=== PATIENT | female | born 1990 | race Caucasian/White ===

== ENCOUNTER 2016-07-01 11:22 | Emergency (ER) | payer OTHER ==
--- NOTE | 2016-07-01 13:43 | ED ---
GI/ HPI - HPI Summary HPI Summary: Patient with 1 month history of foul smelling urine and intermittent left sided back pain, but none currently. She denies history of UTI, kidney stones, kidney infection or abdominal surgeries. She denies previous back pain. Urine smells of "asparagus" and states it is constant. Sexual history includes one partner - each were tested prior to entering relationship. Denies N/V/D/C. Denies trauma to the back. Denies medications. Patient otherwise healthy. Patient is on oral contraceptives, denies possibility of and LMP 6 months ago. Denies vaginal discharge or foul smelling odor from vaginal area. - History of Current Complaint Chief Complaint: EDGeneral Time Seen by Provider: 07/01/16 12:48 Stated Complaint: BOTH SIDE FLANK PAIN Hx Obtained From: Patient Onset/Duration: Started Weeks Ago - 1 month, Atraumatic, Still Present Timing: Intermittent Severity: Mild Current Severity: Mild Pain Intensity: 0 Location of Pain: Flank Pain Characteristics: Dull, Cramping Associated Signs and Symptoms: Positive: Other: - foul smelling urine Additional Signs & Symptoms: Positive: Menses Regular Aggravating Factor(s): Nothing Alleviating Factor(s): Nothing - Risk Factors GI Bleed Risk Factor(s): Negative Spontaneous AB Risk Factor(s): Negative Placental Abruption Risk Factor(s): Negative Ectopic Risk Factor(s): Negative Ovarian Torsion Risk Factor(s): Negative - Additional Pertinent History Primary Care Physician: [id number] - Allergy/Home Medications Allergies/Adverse Reactions: Allergies Allergy/AdvReac Type Severity Reaction Status Date / Time Fluoxetine [From Prozac] Allergy Intermediate Anger Verified 07/01/16 13:00 Sertraline [From Zoloft] Allergy Intermediate Hives Verified 07/01/16 13:00 Bee Venom Allergy Mild Swelling Verified 07/01/16 13:00 Area Gabapentin Allergy Unknown Verified 07/01/16 13:00 Reaction Details Penicillins [PCN] Allergy GI Upset Verified 07/01/16 13:00 Ziprasidone [From Geodon] AdvReac Mild Facial Verified 07/01/16 13:00 Spasms PMH/Surg Hx/FS Hx/Imm Hx Previously Healthy: Yes Endocrine/Hematology History: Denies: Hx Anticoagulant Therapy Respiratory History: Reports: Hx Asthma - Smoking induced asthma, Hx Seasonal Allergies Denies: Hx Chronic Bronchitis, Hx Chronic Obstructive Pulmonary Disease (COPD ), Hx Cystic Fibrosis, Hx Lung Cancer, Hx Pleural Effusion, Hx Pneumonia, Hx Pulmonary Edema, Hx Pulmonary Embolism, Hx Sleep Apnea, Other Respiratory Problems/Disorders Sensory History: Reports: Hx Hearing Problem Denies: Hx Cataracts, Hx Contacts or Glasses, Hx Eye Injury, Hx Eye Prosthesis, Hx Glaucoma, Hx Legally Blind, Hx Macular Degeneration, Hx Vision Problem, Hx Deafness, Hx Hearing Aid, Other Sensory Impairments Opthamlomology History: Denies: Hx Cataracts, Hx Contacts or Glasses, Hx Eye Injury, Hx Eye Prosthesis, Hx Glaucoma, Hx Legally Blind, Hx Macular Degeneration, Hx Vision Problem, Other Sensory Impairments Neurological History: Reports: Hx Headaches - MIGRAINES Denies: Hx Dementia, Hx Developmental Delay, Hx Migraine, Hx Nerve Disease, Hx Seizures, Hx Spinal Cord Injury, Hx Transient Ischemic Attacks (TIA), Other Neuro Impairments/Disorders Psychiatric History: Reports: Hx Anxiety, Hx Eating Disorder - Bulemia, Hx Depression, Hx Post Traumatic Stress Disorder, Hx Inpatient Treatment, Hx Community Mental Health Tx, Hx Bipolar Disorder, Hx Suicide Attempt, Hx of Violent Episodes Against Others Denies: Hx Attention Deficit Hyperactivity Disorder, Hx Panic Disorder, Hx Schizophrenia, Hx Substance Abuse, Other Psychiatric Issues/Disorders - Surgical History Surgery Procedure, Year, and Place: Cleft Palate repair as infant - Immunization History Date of Tetanus Vaccine: unknown Infectious Disease History: No Infectious Disease History: Denies: Hx Clostridium Difficile, Hx Hepatitis, Hx Human Immunodeficiency Virus (HIV), Hx of Known/Suspected MRSA, Hx Shingles, Hx Tuberculosis, Hx Known/ Suspected VRE, Hx Known/Suspected VRSA, History Other Infectious Disease, Traveled Outside the [place] in Last 30 Days - Family History Known Family History: Positive: None - reviewed & noncontributory, Diabetes Family History: R & n/C - Social History Occupation: Employed Full-time Lives: With Family Alcohol Use: Rare Hx Substance Use: Yes Substance Use Type: Reports: Marijuana, Tranquilizers, Other Substance Use Comment - Amount & Last Used: Hx of klonopin OD Hx Tobacco Use: Yes Smoking Status (MU): Heavy Every Day Tobacco Smoker Type: Cigarettes Have You Smoked in the Last Year: No Review of Systems Constitutional: Negative Eyes: Negative Cardiovascular: Negative Respiratory: Negative Gastrointestinal: Negative Positive: see HPI - foul smelling urine. denies other urinary symptoms, other Positive: Myalgia - bilateral flank/back pain intermittent x1 month Neurological: Negative Psychological: Normal All Other Systems Reviewed And Are Negative: Yes Physical Exam Triage Information Reviewed: Yes Vital Signs On Initial Exam: Initial Vitals Temp Pulse Resp BP Pulse Ox 97.4 F 93 15 149/77 99 07/01/16 11:25 07/01/16 11:25 07/01/16 11:25 07/01/16 11:25 07/01/16 11:25 Vital Signs Reviewed: Yes Appearance: Positive: Well-Appearing, No Pain Distress, Well-Nourished Skin: Positive: Warm, Skin Color Reflects Adequate Perfusion Head/Face: Positive: Normal Head/Face Inspection Eyes: Positive: EOMI, KAUSHIK, Conjunctiva Clear Neck: Positive: Nontender Respiratory/Lung Sounds: Positive: Breath Sounds Present Cardiovascular: Positive: Normal Abdomen Description: Positive: Nontender, No Organomegaly, Soft, Other: - no CVA tenderness Bowel Sounds: Positive: Present Musculoskeletal: Positive: Normal, Strength/ROM Intact Neurological: Positive: Normal, Sensory/Motor Intact, Alert, Oriented to Person Place, Time Psychiatric: Positive: Normal AVPU Assessment: Alert Diagnostics - Vital Signs Vital Signs Temp Pulse Resp BP Pulse Ox 07/01/16 12:25 97.6 F 80 16 154/74 98 07/01/16 11:25 97.4 F 93 15 149/77 99 - Laboratory Lab Statement: Any lab studies that have been ordered have been reviewed, and results considered in the medical decision making process. GIGU Course/Dx - Course Course Of Treatment: UA normal. Provider discussed possibilities for foul smelling urine. Patient states no possibility of STD's and feels does not need a pelvic because of this. Also, back pain is not currently present. D/t clean urine and intermittent back pain will defer at this time for a CT. Patient educated to return to ED if symptoms return or worsen and will reevaluate at that time. Patient agrees with plan and [facility] - Diagnoses Differential Diagnoses - Female: Pelvic Inflammatory Disease, Pyelonephritis, Renal Calculi, Renal Colic Provider Diagnoses: Foul smelling urine Discharge - Discharge Plan Condition: Stable Disposition: HOME Patient Education Materials: Kidney Stones (ED) Referrals: Migel Suarez MD [Primary Care Provider] - Additional Instructions: If you develop a fever, worsening back pain, urinary symptoms or generalized weakness, come back to ED. You may take ibuprofen 600mg three times daily with meals for any discomfort you are having. [facility].
[2016-07-01 13:48] LABS: Urine Bilirubin Negative (Negative); Urine Glucose Negative (Negative); Urine Nitrite Negative (Negative)
[2016-07-01 14:36] VITALS: BP 118/84
== END 2016-07-01 14:35 | disposition home or self-care (01) ==
LOC: ED 11:22
DX: M54.9 Dorsalgia, unspecified (principal); R82.99 Other abnormal findings in urine; R10.84 Generalized abdominal pain; F17.210 Nicotine dependence, cigarettes, uncomplicated
CPT/HCPCS: 81003; 99282

== ENCOUNTER 2016-08-24 10:49 | Emergency (ER) | payer OTHER ==
[2016-08-24 10:57] VITALS: BP 155/76
[2016-08-24 11:31] LABS: Hematocrit 43 % (35-47); Hemoglobin 14.6 g/dl (12.0-16.0); Mean Corpuscular HGB Conc 34 g/dl (31-36); Mean Corpuscular Hemoglobin 29 pg (27-31); Mean Corpuscular Volume 87 fL (80-97); Mean Platelet Volume 9 um3 (7.4-10.4); Red Blood Count 4.97 10^6/ul (4.0-5.4); Red Cell Distribution Width 13 % (10.5-15); White Blood Count 10.3 10^3/ul (3.5-10.8)
[2016-08-24 11:57] LABS: Urine Bilirubin Negative (Negative); Urine Glucose Negative (Negative); Urine Nitrite Negative (Negative)
[2016-08-24 11:57] LABS: ALT 30 U/L (7-52); AST 24 U/L (13-39); Albumin 4.1 g/dL (3.2-5.2); Alkaline Phosphatase 94 U/L (34-104); Anion Gap 8 mmol/L (2-11); BUN/Creatinine Ratio 20.6 (8-20); Blood Urea Nitrogen 14 mg/dL (6-24); CO2 Carbon Dioxide 23 mmol/L (22-32); Calcium 9.1 mg/dL (8.6-10.3); Chloride 105 mmol/L (101-111); EGFR African American 134.5 (>60); EGFR Non-African American 104.6 (>60); Globulin 3.5 g/dL (2-4); Glucose 95 mg/dL (70-100); Potassium 4.1 mmol/L (3.5-5.0); Sodium 136 mmol/L (133-145); Total Protein 7.6 g/dL (6.4-8.9)
[2016-08-24 12:02] LABS: Acetaminophen < 15 mcg/mL; Alcohol < 10 mg/dL (<10); Salicylate < 2.50 mg/dL (<30)
[2016-08-24 12:10] LABS: TSH (Thyroid Stimulating Horm) 2.53 mcIU/mL (0.34-5.60)
[2016-08-24 12:11] LABS: Benzodiazepine Urine Screen None Detected (None Detect)
--- NOTE | 2016-09-18 13:47 | ED ---
Psychiatric Complaint - HPI Summary HPI Summary: Patient presents with depression and uncontrolled crying. She stopped her psyche /depression medicaitons 2 weeks ago under advisement of her physician and has been struggling with depression/anxiety ever since. She denies HI or SI with a plan. - History Of Current Complaint Chief Complaint: EDMentalHealth Time Seen by Provider: 08/24/16 11:04 Hx Obtained From: Patient Hx Last Menstrual Period: 03/31/15 ?: No Onset/Duration: Gradual Onset Timing: Constant Severity Initially: Severe Severity Currently: Severe Character: Depressed Aggravating Factor(s): Nothing Alleviating Factor(s): Medication Associated Signs And Symptoms: Positive: Sleep Disturbance, Appetite Change Related History: Positive For: Prior Psychiatric Issues - Allergies/Home Medications Allergies/Adverse Reactions: Allergies Allergy/AdvReac Type Severity Reaction Status Date / Time Fluoxetine [From Prozac] Allergy Intermediate Anger Verified 07/01/16 13:00 Sertraline [From Zoloft] Allergy Intermediate Hives Verified 07/01/16 13:00 Bee Venom Allergy Mild Swelling Verified 07/01/16 13:00 Area Gabapentin Allergy Unknown Verified 07/01/16 13:00 Reaction Details Penicillins [PCN] Allergy GI Upset Verified 07/01/16 13:00 Ziprasidone [From Geodon] AdvReac Mild Facial Verified 07/01/16 13:00 Spasms Home Medications: Home Medications Ibuprofen TAB* [Motrin TAB* 600 MG] 600 mg PO Q8H PRN 08/24/16 [History Confirmed 08/24/16] PMH/Surg Hx/FS Hx/Imm Hx Endocrine/Hematology History: Denies: Hx Anticoagulant Therapy Respiratory History: Reports: Hx Asthma - Smoking induced asthma, Hx Seasonal Allergies Denies: Hx Chronic Bronchitis, Hx Chronic Obstructive Pulmonary Disease (COPD ), Hx Cystic Fibrosis, Hx Lung Cancer, Hx Pleural Effusion, Hx Pneumonia, Hx Pulmonary Edema, Hx Pulmonary Embolism, Hx Sleep Apnea, Other Respiratory Problems/Disorders Sensory History: Reports: Hx Hearing Problem Denies: Hx Cataracts, Hx Contacts or Glasses, Hx Eye Injury, Hx Eye Prosthesis, Hx Glaucoma, Hx Legally Blind, Hx Macular Degeneration, Hx Vision Problem, Hx Deafness, Hx Hearing Aid, Other Sensory Impairments Opthamlomology History: Denies: Hx Cataracts, Hx Contacts or Glasses, Hx Eye Injury, Hx Eye Prosthesis, Hx Glaucoma, Hx Legally Blind, Hx Macular Degeneration, Hx Vision Problem, Other Sensory Impairments Neurological History: Reports: Hx Headaches - MIGRAINES Denies: Hx Dementia, Hx Developmental Delay, Hx Migraine, Hx Nerve Disease, Hx Seizures, Hx Spinal Cord Injury, Hx Transient Ischemic Attacks (TIA), Other Neuro Impairments/Disorders Psychiatric History: Reports: Hx Anxiety, Hx Eating Disorder - sometimes she binge eats., Hx Depression, Hx Post Traumatic Stress Disorder, Hx Inpatient Treatment, Hx Community Mental Health Tx, Hx Bipolar Disorder, Hx Suicide Attempt, Hx of Violent Episodes Against Others Denies: Hx Attention Deficit Hyperactivity Disorder, Hx Panic Disorder, Hx Schizophrenia, Hx Substance Abuse, Other Psychiatric Issues/Disorders - Surgical History Surgery Procedure, Year, and Place: Cleft Palate repair as - Immunization History Date of Tetanus Vaccine: unknown Infectious Disease History: No Infectious Disease History: Denies: Hx Clostridium Difficile, Hx Hepatitis, Hx Human Immunodeficiency Virus (HIV), Hx of Known/Suspected MRSA, Hx Shingles, Hx Tuberculosis, Hx Known/ Suspected VRE, Hx Known/Suspected VRSA, History Other Infectious Disease, Traveled Outside the [place] in Last 30 Days - Family History Known Family History: Positive: Diabetes Family History: R & n/C - Social History Occupation: Employed Part-time Lives: With Family Alcohol Use: Rare Hx Substance Use: Yes Substance Use Type: Reports: Marijuana, Tranquilizers, Other Substance Use Comment - Amount & Last Used: Hx of klonopin OD Hx Tobacco Use: Yes Smoking Status (MU): Heavy Every Day Tobacco Smoker Type: Cigarettes Have You Smoked in the Last Year: No Cessation Counseling: Patient Advised to Stop Review of Systems Positive: Depressed All Other Systems Reviewed And Are Negative: Yes Physical Exam Triage Information Reviewed: Yes Vital Signs On Initial Exam: Initial Vitals Temp Pulse Resp BP Pulse Ox 97.0 F 86 20 155/76 99 08/24/16 10:55 08/24/16 10:55 08/24/16 10:55 08/24/16 10:55 08/24/16 10:55 Vital Signs Reviewed: Yes Appearance: Positive: Well-Appearing, No Pain Distress, Obese Skin: Positive: Warm, Skin Color Reflects Adequate Perfusion, Dry, Soft Head/Face: Positive: Normal Head/Face Inspection Eyes: Positive: EOMI, KAUSHIK, Conjunctiva Clear ENT: Positive: Hearing grossly normal Neck: Positive: Supple, Nontender, No Lymphadenopathy Respiratory/Lung Sounds: Positive: Clear to Auscultation, Breath Sounds Present Cardiovascular: Positive: RRR Abdomen Description: Positive: Nontender, Soft Bowel Sounds: Positive: Present Musculoskeletal: Negative: Edema Left, Edema Right Neurological: Positive: Sensory/Motor Intact, Alert, Oriented to Person Place, Time, NV Bundle Intact Distally, Normal Gait Psychiatric: Positive: Depressed AVPU Assessment: Alert Diagnostics - Vital Signs Vital Signs Temp Pulse Resp BP Pulse Ox 08/24/16 11:50 97 F 86 20 155/76 100 08/24/16 10:55 97.0 F 86 20 155/76 99 - Laboratory Lab Results: Lab Results 08/24/16 08/24/16 08/24/16 Range/Units 11:14 11:14 11:20 WBC 10.3 (3.5-10.8) 10^3/ul RBC 4.97 (4.0-5.4) 10^6/ul Hgb 14.6 (12.0-16.0) g/dl Hct 43 (35-47) % MCV 87 (80-97) fL MCH 29 (27-31) pg MCHC 34 (31-36) g/dl RDW 13 (10.5-15) % Plt Count 249 (150-450) 10^3/ul MPV 9 (7.4-10.4) um3 Neut % (Auto) 57.7 (38-83) % Lymph % (Auto) 30.8 (25-47) % [place] % (Auto) 6.7 (1-9) % Eos % (Auto) 3.9 (0-6) % Baso % (Auto) 0.9 (0-2) % Absolute Neuts (auto) 5.9 (1.5-7.7) 10^3/ul Absolute Lymphs (auto) 3.2 (1.0-4.8) 10^3/ul Absolute Monos (auto) 0.7 (0-0.8) 10^3/ul Absolute Eos (auto) 0.4 (0-0.6) 10^3/ul Absolute Basos (auto) 0.1 (0-0.2) 10^3/ul Absolute Nucleated RBC 0 10^3/ul Nucleated RBC % 0 Sodium 136 (133-145) mmol/L Potassium 4.1 (3.5-5.0) mmol/L Chloride 105 (101-111) mmol/L Carbon Dioxide 23 (22-32) mmol/L Anion Gap 8 (2-11) mmol/L BUN 14 (6-24) mg/dL Creatinine 0.68 (0.51-0.95) mg/dL Est GFR ( Amer) 134.5 (>60) Est GFR (Non-Af Amer) 104.6 (>60) BUN/Creatinine Ratio 20.6 H (8-20) Glucose 95 (70-100) mg/dL Calcium 9.1 (8.6-10.3) mg/dL Total Bilirubin 0.20 (0.2-1.0) mg/dL AST 24 (13-39) U/L ALT 30 (7-52) U/L Alkaline Phosphatase 94 (34-104) U/L Total Protein 7.6 (6.4-8.9) g/dL Albumin 4.1 (3.2-5.2) g/dL Globulin 3.5 (2-4) g/dL Albumin/Globulin Ratio 1.2 (1-3) TSH 2.53 (0.34-5.60) mcIU/mL Urine Color Straw Urine Appearance Clear Urine pH 6.0 (5-9) Ur Specific [place] 1.008 L (1.010-1.030) Urine Protein Negative (Negative) Urine Ketones Negative (Negative) Urine Blood Negative (Negative) Urine Nitrate Negative (Negative) Urine Bilirubin Negative (Negative) Urine Urobilinogen Negative (Negative) Ur Leukocyte Esterase Negative (Negative) Urine Glucose Negative (Negative) Salicylates < 2.50 (<30) mg/dL Urine Opiates Screen (None Detect) Acetaminophen < 15 mcg/mL Ur Barbiturates Screen (None Detect) Ur Phencyclidine Scrn (None Detect) Ur Amphetamines Screen (None Detect) U Benzodiazepines Scrn (None Detect) Urine Cocaine Screen (None Detect) U Cannabinoids Screen (None Detect) Serum Alcohol < 10 (<10) mg/dL 08/24/16 Range/Units 11:20 WBC (3.5-10.8) 10^3/ul RBC (4.0-5.4) 10^6/ul Hgb (12.0-16.0) g/dl Hct (35-47) % MCV (80-97) fL MCH (27-31) pg MCHC (31-36) g/dl RDW (10.5-15) % Plt Count (150-450) 10^3/ul MPV (7.4-10.4) um3 Neut % (Auto) (38-83) % Lymph % (Auto) (25-47) % [place] % (Auto) (1-9) % Eos % (Auto) (0-6) % Baso % (Auto) (0-2) % Absolute Neuts (auto) (1.5-7.7) 10^3/ul Absolute Lymphs (auto) (1.0-4.8) 10^3/ul Absolute Monos (auto) (0-0.8) 10^3/ul Absolute Eos (auto) (0-0.6) 10^3/ul Absolute Basos (auto) (0-0.2) 10^3/ul Absolute Nucleated RBC 10^3/ul Nucleated RBC % Sodium (133-145) mmol/L Potassium (3.5-5.0) mmol/L Chloride (101-111) mmol/L Carbon Dioxide (22-32) mmol/L Anion Gap (2-11) mmol/L BUN (6-24) mg/dL Creatinine (0.51-0.95) mg/dL Est GFR ( Amer) (>60) Est GFR (Non-Af Amer) (>60) BUN/Creatinine Ratio (8-20) Glucose (70-100) mg/dL Calcium (8.6-10.3) mg/dL Total Bilirubin (0.2-1.0) mg/dL AST (13-39) U/L ALT (7-52) U/L Alkaline Phosphatase (34-104) U/L Total Protein (6.4-8.9) g/dL Albumin (3.2-5.2) g/dL Globulin (2-4) g/dL Albumin/Globulin Ratio (1-3) TSH (0.34-5.60) mcIU/mL Urine Color Urine Appearance Urine pH (5-9) Ur Specific [place] (1.010-1.030) Urine Protein (Negative) Urine Ketones (Negative) Urine Blood (Negative) Urine Nitrate (Negative) Urine Bilirubin (Negative) Urine Urobilinogen (Negative) Ur Leukocyte Esterase (Negative) Urine Glucose (Negative) Salicylates (<30) mg/dL Urine Opiates Screen None detected (None Detect) Acetaminophen mcg/mL Ur Barbiturates Screen None detected (None Detect) Ur Phencyclidine Scrn None detected (None Detect) Ur Amphetamines Screen None detected (None Detect) U Benzodiazepines Scrn None detected (None Detect) Urine Cocaine Screen None detected (None Detect) U Cannabinoids Screen Presumptive positive H (None Detect) Serum Alcohol (<10) mg/dL Result Diagrams: 08/24/16 11:14 08/24/16 11:14 Lab Statement: Any lab studies that have been ordered have been reviewed, and results considered in the medical decision making process. Course/Dx - Differential Dx/Clinical Impression Differential Diagnosis/HQI/PQRI: Positive: Acute Psychosis, Alcohol Intoxication , Anxiety, Bipolar Disorder, Depression, Homicidal Ideation, Suicide Attempt Provider Diagnosis: Persistent mood [affective] disorder, unspecified - Physician Notifications Patient Is Medically Stable For: Psych Evaluation Discharge - Discharge Plan Condition: Guarded Disposition: HOME Referrals: Migel Suarez MD [Primary Care Provider] -
== END 2016-08-24 17:47 | disposition home or self-care (01) ==
LOC: ED 10:49
DX: F39 Unspecified mood [affective] disorder (principal); G47.9 Sleep disorder, unspecified; F32.9 Major depressive disorder, single episode, unspecified
CPT/HCPCS: 36415; 80053; 80307; 80320; 80329; 81003; 84443; 85025; 99283; G0480

== ENCOUNTER 2017-04-13 10:16 | Emergency (ER) | payer OTHER ==
[2017-04-13 10:23] VITALS: BP 141/68
--- NOTE | 2017-04-13 10:48 | RAD ---
INDICATION: Right elbow pain. TECHNIQUE: 4 views of the right elbow were obtained. FINDINGS: The bones are in normal alignment. No joint effusion or fracture is seen. Joint spaces appear maintained. IMPRESSION: NO EVIDENCE FOR FRACTURE.
--- NOTE | 2017-04-13 11:14 | ED ---
Upper Extremity Pain - HPI Summary HPI Summary: 26 female presents to ED with complaints of right elbow pain that began ~ 2 weeks ago and has not improved. States she noticed it worsened after leaning on it a few days ago. States pain is worse with movement, full extension/flexion and use. States she uses it a lot while at work. She is right hand dominant. Has been taking ibuprofen with minimal relief. Rest makes pain better. Never had this pain before. Denies redness, swelling, bruising and numbness/tingling. No other complaints. No known trauma or injury. No PMHx. - History of Current Complaint Chief Complaint: EDExtremityUpper Stated Complaint: RIGHT ELBOW INJURY Time Seen by Provider: 04/13/17 10:24 Hx Obtained From: Patient Hx Last Menstrual Period: 03/31/15 Mechanism Of Injury: Unknown Onset/Duration: Started Weeks Ago - 2, Still Present, Worse Since Timing: Lasting Weeks - 2 Severity Initially: Mild Severity Currently: Moderate Pain Location: Elbow - right Character: Sharp - with movement, Dull, Aching - at rest Aggravating Factor(s): Movement, Flexion, Extension Alleviating Factor(s): Rest Associated Signs & Symptoms: Positive: Negative. Negative: Swelling, Redness, Bruising, Weakness, Numbness/Tingling, Nausea Related History: Dominant Hand Right - Allergies/Home Medications Allergies/Adverse Reactions: Allergies Allergy/AdvReac Type Severity Reaction Status Date / Time Fluoxetine [From Prozac] Allergy Intermediate Anger Verified 04/13/17 10:18 Sertraline [From Zoloft] Allergy Intermediate Hives Verified 04/13/17 10:18 Bee Venom Allergy Mild Swelling Verified 04/13/17 10:18 Area Gabapentin Allergy Unknown Verified 04/13/17 10:18 Reaction Details Penicillins [PCN] Allergy GI Upset Verified 04/13/17 10:18 Ziprasidone [From Geodon] AdvReac Mild Facial Verified 04/13/17 10:18 Spasms PMH/Surg Hx/FS Hx/Imm Hx Endocrine/Hematology History: Denies: Hx Anticoagulant Therapy Respiratory History: Reports: Hx Asthma - Smoking induced asthma, Hx Seasonal Allergies Denies: Hx Chronic Bronchitis, Hx Chronic Obstructive Pulmonary Disease (COPD ), Hx Cystic Fibrosis, Hx Lung Cancer, Hx Pleural Effusion, Hx Pneumonia, Hx Pulmonary Edema, Hx Pulmonary Embolism, Hx Sleep Apnea, Other Respiratory Problems/Disorders Sensory History: Denies: Hx Cataracts, Hx Contacts or Glasses, Hx Eye Injury, Hx Eye Prosthesis, Hx Glaucoma, Hx Legally Blind, Hx Macular Degeneration, Hx Vision Problem, Other Sensory Impairments Opthamlomology History: Denies: Hx Cataracts, Hx Contacts or Glasses, Hx Eye Injury, Hx Eye Prosthesis, Hx Glaucoma, Hx Legally Blind, Hx Macular Degeneration, Hx Vision Problem, Other Sensory Impairments Neurological History: Reports: Hx Headaches - MIGRAINES Denies: Hx Dementia, Hx Developmental Delay, Hx Migraine, Hx Nerve Disease, Hx Seizures, Hx Spinal Cord Injury, Hx Transient Ischemic Attacks (TIA), Other Neuro Impairments/Disorders Psychiatric History: Reports: Hx Anxiety, Hx Eating Disorder - sometimes she binge eats., Hx Depression, Hx Post Traumatic Stress Disorder, Hx Inpatient Treatment, Hx Community Mental Health Tx, Hx Bipolar Disorder, Hx Suicide Attempt, Hx of Violent Episodes Against Others Denies: Hx Attention Deficit Hyperactivity Disorder, Hx Panic Disorder, Hx Schizophrenia, Hx Substance Abuse, Other Psychiatric Issues/Disorders - Surgical History Surgery Procedure, Year, and Place: Cleft Palate repair as - Immunization History Date of Tetanus Vaccine: UTD Date of Influenza Vaccine: NO Infectious Disease History: Yes Infectious Disease History: Denies: Hx Clostridium Difficile, Hx Hepatitis, Hx Human Immunodeficiency Virus (HIV), Hx of Known/Suspected MRSA, Hx Shingles, Hx Tuberculosis, Hx Known/ Suspected VRE, Hx Known/Suspected VRSA, History Other Infectious Disease, Traveled Outside the [place] in Last 30 Days - Family History Known Family History: Positive: Diabetes Family History: R & n/C - Social History Alcohol Use: Rare Hx Substance Use: Yes Substance Use Type: Reports: Marijuana, Tranquilizers, Other Substance Use Comment - Amount & Last Used: Hx of klonopin OD Hx Tobacco Use: Yes Smoking Status (MU): Current Every Day Smoker Type: Cigarettes Have You Smoked in the Last Year: No Review of Systems Constitutional: Negative Cardiovascular: Negative Respiratory: Negative Positive: Arthralgia, Myalgia, Decreased ROM - left elbow Skin: Negative Neurological: Negative All Other Systems Reviewed And Are Negative: Yes Physical Exam Triage Information Reviewed: Yes Vital Signs On Initial Exam: Initial Vitals Temp Pulse Resp BP Pulse Ox 97.3 F 67 15 141/68 99 04/13/17 10:19 04/13/17 10:19 04/13/17 10:19 04/13/17 10:19 04/13/17 10:19 Vital Signs Reviewed: Yes Appearance: Positive: Well-Appearing, No Pain Distress, Well-Nourished Skin: Positive: Warm, Skin Color Reflects Adequate Perfusion, Dry. Negative: Cold, Numb, Cyanosis @, Pale, Erythema @ Head/Face: Positive: Normal Head/Face Inspection Eyes: Positive: Conjunctiva Clear ENT: Positive: Hearing grossly normal Neck: Positive: Supple, Nontender Respiratory/Lung Sounds: Positive: Clear to Auscultation, Breath Sounds Present. Negative: Rales, Rhonchi, Wheezes Cardiovascular: Positive: Normal, RRR, Pulses are Symmetrical in both Upper and Lower Extremities - 2+ radial b/l. Negative: Murmur, Rub Musculoskeletal: Positive: Normal, Strength/ROM Intact, Pain @ - with full flexion and extension or right elbow however able, Other - no crepitus, step off , obvious deformity, or signs of trauma. no ecchymosis, edema or erythema. paints to pain at right lateral elbow. Negative: Limited @, Interruption @, Abnormal @ Neurological: Positive: Normal, Sensory/Motor Intact - intact, Alert, Oriented to Person Place, Time, CN Intact II-III, Reflexes Intact, NV Bundle Intact Distally, Normal Gait - Lisa Coma Scale Coma Scale Total: 15 Diagnostics - Vital Signs Vital Signs Temp Pulse Resp BP Pulse Ox 04/13/17 10:19 97.3 F 67 15 141/68 99 - Laboratory Lab Statement: Any lab studies that have been ordered have been reviewed, and results considered in the medical decision making process. - Radiology right elbow Xray Interpretation: No Acute Changes - The bones are in normal alignment. No joint effusion or fracture is seen. Joint spaces appear maintained. Radiology Interpretation Completed By: Radiologist - and myself Course/Dx - Course Course Of Treatment: given ibuprofen and prednisone while in ED. Alen bandage applied. No obvious PE findings of any trauma or deformity. Appears to possible be suffering from overuse injury/ tennis elbow. Will continue ibuprofen and start on short course low dose prednisone to help with inflammation. Heat/ice, rest. Avoid over use. Xray obtained and negative. No concern for other etiology at this time. Follow up with PCP. Aware of worsening signs and symptoms. - Diagnoses Differential Diagnosis/HQI/PQRI: Positive: Arthritis, Fracture (Closed), Strain , Sprain, Other - tennis elbow, tendonitis Provider Diagnoses: Right elbow pain, Tendonitis of elbow, right Discharge - Discharge Plan Condition: Stable Disposition: HOME Prescriptions: Ibuprofen TAB* [Motrin TAB* 600 MG] 600 mg PO Q6H PRN #25 tab PRN Reason: Pain predniSONE TAB* [Deltasone TAB*] 20 mg PO DAILY #2 tab Patient Education Materials: Tennis Elbow (ED), Arthralgia (ED) Forms: *Work Release Referrals: Migel Suarez MD [Primary Care Provider] - Additional Instructions: Take prescribed medication as directed for the next couple of days. Take ibuprofen with food. Start prednisone tomorrow morning as you already had todays dose. Recommend rest, applying elbow brace/alen bandage as discussed for compression and support. Ice/heat. Try and refrain from use. Any new or worsening symptoms please follow up with PCP as we discussed.
[2017-04-13] MEDS ORDERED: Ibuprofen TAB* 600 MG PO ONE (11:54)
[2017-04-13] MEDS ORDERED: predniSONE TAB* 10 MG PO ONE (11:54)
== END 2017-04-13 12:07 | disposition home or self-care (01) ==
LOC: ED 10:16
DX: M25.521 Pain in right elbow (principal); M77.11 Lateral epicondylitis, right elbow
CPT/HCPCS: 99282; A9270-GY; J7512

== ENCOUNTER → 2017-05-11 12:40 | Emergency (ER) | payer OTHER ==
[~2017-05-11 12:40] MED LIST: Ondansetron ODT TAB* 4 MG PO ONE; Ondansetron TAB* 4 MG PO ONE
[2017-05-11 15:09] VITALS: BP 137/83
--- NOTE | 2017-05-11 20:34 | UC ---
Mickie Decker Thomas, scribed for John Villegas MD on 05/11/17 at 1512 . General HPI - HPI Summary HPI Summary: The patient is a 26 year old female presenting to Urgent Care complaining of nausea that began yesterday. The patient did vomit once yesterday. Patient additionally complains of left-sided ear pain (onset two days ago), cough, soft stools, and nasal congestion. Patient denies abdominal pain. She is on control. - History of Current Complaint Chief Complaint: UCAbdominalPain Stated Complaint: COUGH, RUNNY NOSE, AND EAR ACHE Time Seen by Provider: 05/11/17 15:04 Hx Obtained From: Patient Hx Last Menstrual Period: IUD- spotting the past few days Onset/Duration: Lasting Days - 1, Still Present Timing: Constant Pain Location at: Left ear Aggravating: None Alleviating: None Associated Signs & Symptoms: Positive: Nausea, Vomiting, Other - Ear pain, cough , soft stools, nasal congestion. Negative: Abdominal Pain, Fever - Allergy/Home Medications Allergies/Adverse Reactions: Allergies Allergy/AdvReac Type Severity Reaction Status Date / Time Fluoxetine [From Prozac] Allergy Intermediate Anger Verified 05/11/17 13:10 Sertraline [From Zoloft] Allergy Intermediate Hives Verified 05/11/17 13:10 Bee Venom Allergy Mild Swelling Verified 05/11/17 13:10 Area Gabapentin Allergy Unknown Verified 05/11/17 13:10 Reaction Details Penicillins [PCN] Allergy GI Upset Verified 05/11/17 13:10 Ziprasidone [From Geodon] AdvReac Mild Facial Verified 05/11/17 13:10 Spasms PMH/Surg Hx/FS Hx/Imm Hx Previously Healthy: No - Cleft palate; NEGATIVE: DM Other History Of: Negative For: Anticoagulant Therapy - Surgical History Surgical History: None Surgery Procedure, Year, and Place: Cleft Palate repair as - Family History Known Family History: Positive: Diabetes - Social History Occupation: Employed Full-time Alcohol Use: None Substance Use Type: Marijuana, Tranquilizers, Other Substance Use Comment - Amount & Last Used: daily Smoking Status (MU): Current Every Day Smoker Type: Cigarettes Amount Used/How Often: 1/2PPD Have You Smoked in the Last Year: No Household Exposure Type: Cigarettes - Immunization History Most Recent Influenza Vaccination: 2 years ago Most Recent Tetanus Shot: 1-2 years Most Recent Pneumonia Vaccination: Never Review of Systems ENT: Ear Ache, Other - Nasal congestion Respiratory: Cough Gastrointestinal: Nausea, Other - Soft stools Is Patient Immunocompromised?: No All Other Systems Reviewed And Are Negative: Yes Physical Exam Triage Information Reviewed: Yes Vital Signs: Initial Vital Signs Temp 98.2 F 05/11/17 13:04 Pulse 81 05/11/17 13:04 Resp 14 05/11/17 13:04 BP 146/78 05/11/17 13:04 Pulse Ox 99 05/11/17 13:04 Vital Signs Reviewed: Yes - Additional Comments VITAL SIGNS: Reviewed. GENERAL: Patient is a well-developed and nourished female who is lying comfortable in the stretcher. Patient is not in any acute respiratory distress. HEAD AND FACE: Normocephalic EYES: PERRLA, EOMI x 2. EARS: Hearing grossly intact. MOUTH: Oropharynx within normal limits. NECK: Supple, trachea is midline, no adenopathy, no JVD, no carotid bruit. CHEST: Symmetric, no tenderness at palpation LUNGS: Clear to auscultation bilaterally. No wheezing or crackles. CVS: Regular rate and rhythm, S1 and S2 present, no murmurs or gallops appreciated. ABDOMEN: Soft, non-tender. Bowel sounds are normal. No abdominal abnormal pulsations. EXTREMITIES: Full ROM in all major joints, no edema, no cyanosis or clubbing. NEURO: Alert and oriented x 3. No acute neurological deficits. Speech is normal and follows commands. SKIN: Dry and warm Course/Dx - Course Course Of Treatment: The patient is a 26 year old female presenting to Urgent Care complaining of nausea that began yesterday. The patient did vomit once yesterday. Patient additionally complains of left-sided ear pain (onset two days ago), cough, soft stools, and nasal congestion. Patient denies abdominal pain. She is on control. She has as normal physical exam. She was given Zofran at Urgent Care. Rapid Strep and tests are negative. Urinalysis is negative for UTI. The patient is diagnosed with nausea. The patient will be discharged home and instructed to follow up with primary care. She was given a work note. The patient is prescribed Zofran. - Differential Dx - Multi-Symptom Differential Diagnoses: Urinary Tract Infection - , URI, gastroenteritis. Provider Diagnoses: Nausea Discharge - Discharge Plan Condition: Stable Disposition: HOME Prescriptions: Ondansetron ODT TAB* [Zofran 4 MG Odt TAB*] 4 mg PO Q8H PRN #10 tab.odt PRN Reason: Nausea Patient Education Materials: Acute Nausea and Vomiting (ED) Forms: *Work Release Referrals: Migel Suarez MD [Primary Care Provider] - 3 Days Additional Instructions: Follow up with your primary care physician in 3 days. Return to urgent care for any new or worsening symptoms. The documentation as recorded by the Mickie christianson Thomas accurately reflects the service I personally performed and the decisions made by Bakari ricardo Walter, MD.
== END | disposition home or self-care (01) ==
LOC: UCEAST 12:40
DX: R11.0 Nausea (principal); H92.02 Otalgia, left ear; R05 Cough; R09.81 Nasal congestion; Z88.8 Allergy status to other drugs, medicaments and biological substances; Z91.030 Bee allergy status; Z88.0 Allergy status to penicillin; F17.210 Nicotine dependence, cigarettes, uncomplicated
CPT/HCPCS: 81003; 81025; 87651; 99212; A9270-GY; G0463

== ENCOUNTER 2017-06-12 14:14 | Emergency (ER) | payer OTHER ==
[2017-06-12 14:28] VITALS: BP 126/66
--- NOTE | 2017-06-17 12:42 | UC ---
Magdy Decker Natalie, scribed for Lv Blake MD on 06/17/17 at 1242 . Throat Pain/Nasal Jude HPI - HPI Summary HPI Summary: The pt is a 26 y/o F presenting to c/o nasal congestion and sore throat starting 5 days ago. The pain is rated 2/10. 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 Pt additionally c/o fever, dizziness, and head pressure. Pt denies chills, ear pain, and headache. - History of Current Complaint Chief Complaint: UCRespiratory Stated Complaint: SORE THROAT Time Seen by Provider: 06/12/17 14:39 Hx Obtained From: Patient Hx Last Menstrual Period: iud Onset/Duration: Lasting Days - starting 5 days ago, Still Present Severity: Mild Pain Intensity: 2 Pain Scale Used: 0-10 Numeric Cough: None Associated Signs & Symptoms: Positive: Other - POSITIVE: fever, dizziness, head pressure; NEGATIVE: chills, ear pain, headache - Allergies/Home Medications Allergies/Adverse Reactions: Allergies Allergy/AdvReac Type Severity Reaction Status Date / Time Fluoxetine [From Prozac] Allergy Intermediate Anger Verified 05/11/17 13:10 Sertraline [From Zoloft] Allergy Intermediate Hives Verified 05/11/17 13:10 Bee Venom Allergy Mild Swelling Verified 05/11/17 13:10 Area Gabapentin Allergy Unknown Verified 05/11/17 13:10 Reaction Details Penicillins [PCN] Allergy GI Upset Verified 05/11/17 13:10 Ziprasidone [From Geodon] AdvReac Mild Facial Verified 05/11/17 13:10 Spasms PMH/Surg Hx/FS Hx/Imm Hx Other History Of: Negative For: Anticoagulant Therapy - Surgical History Surgical History: None Surgery Procedure, Year, and Place: Cleft Palate repair as - Family History Known Family History: Positive: Diabetes Family History: R & n/C - Social History Alcohol Use: None Substance Use Type: Marijuana Substance Use Comment - Amount & Last Used: daily Smoking Status (MU): Current Every Day Smoker Type: Cigarettes Amount Used/How Often: 1/2PPD Have You Smoked in the Last Year: No Household Exposure Type: Cigarettes - Immunization History Most Recent Influenza Vaccination: 2 years ago Most Recent Tetanus Shot: 1-2 years Most Recent Pneumonia Vaccination: Never Review of Systems Constitutional: Fever, Other - NEGATIVE: chills ENT: Sore Throat, Sinus Congestion, Other - NEGATIVE: ear pain Neurological: Other - head pressure, dizziness All Other Systems Reviewed And Are Negative: Yes Physical Exam Triage Information Reviewed: Yes Appearance: Ill-Appearing - mildly Vital Signs: Initial Vital Signs Temp 97.6 F 06/12/17 14:22 Pulse 84 06/12/17 14:22 Resp 16 06/12/17 14:22 BP 126/66 06/12/17 14:22 Pulse Ox 100 06/12/17 14:22 Vital Signs Reviewed: Yes Eyes: Positive: Other: - EOMI, KAUSHIK ENT: Positive: Other - positive rhinorrhea, positive erythema in posterior pharynx Neck: Positive: Supple, Other: - postive anterior cervical lymphadenopathy Respiratory: Positive: Other: - CTA, breath sounds present Cardiovascular: Positive: RRR Abdomen Description: Positive: Nontender, Soft Bowel Sounds: Positive: Present Musculoskeletal Exam: Normal Musculoskeletal: Positive: Strength Intact, ROM Intact Neurological: Positive: Other: - Normal, sensory/motor intacts, A&O x3 Psychological: Positive: Other: - Affect/mood appropriate Skin: Positive: Other - warm, color reflects adequate perfusion, dry Throat Pain/Nasal Course/Dx - Course Course Of Treatment: Allergies noted. - Differential Dx/Diagnosis Provider Diagnoses: SINUSITIS Discharge - Discharge Plan Condition: Stable Disposition: HOME Prescriptions: DOXYcycline CAP(*) [DOXYcycline 100MG CAP(*)] 100 mg PO BID #20 cap Patient Education Materials: Sinusitis (ED) Forms: *Work Release Referrals: Migel Suarez MD [Primary Care Provider] - Additional Instructions: FOLLOW UP WITH YOUR DOCTOR. GET RECHECKED FOR ANY WORSENING OF YOUR CONDITION OR QUESTIONS OR CONCERNS. The documentation as recorded by the Magdy christianson Natalie accurately reflects the service I personally performed and the decisions made by me, Lv Blake MD.
== END 2017-06-12 16:00 | disposition home or self-care (01) ==
LOC: UCEAST 14:14
DX: J32.9 Chronic sinusitis, unspecified (principal); Z88.0 Allergy status to penicillin; Z88.8 Allergy status to other drugs, medicaments and biological substances; Z91.030 Bee allergy status; F12.90 Cannabis use, unspecified, uncomplicated; F17.210 Nicotine dependence, cigarettes, uncomplicated
CPT/HCPCS: 87502; 87651; 99212; G0463

== ENCOUNTER 2017-09-20 08:24 | Emergency (ER) | payer OTHER ==
[2017-09-20] MEDS ORDERED: Ketorolac INJ* 60 MG/2 ML VIAL IM ONE (09:28)
[2017-09-20] MEDS ORDERED: HYDROcodone/ACETAMIN 5-325 MG* 1 TAB PO ONE (09:28)
[2017-09-20 11:46] VITALS: BP 102/45
--- NOTE | 2017-09-20 18:33 | ED ---
Sergio Decker Stephanie, scribed for Truman Gill MD on 09/20/17 at 0935 . Lower Extremity - HPI Summary HPI Summary: The pt is a 26 y/o F BIBA to the ED with c/o R lower back pain since 09/17/17. Her back pain radiates from her mid-back to her R knee. The onset of pain occurred when she was playing basketball and jumped. Aggravating factors include movement. - History of Current Complaint Chief Complaint: EDBackInjuryPain Stated Complaint: BACK PAIN Time Seen by Provider: 09/20/17 08:49 Hx Obtained From: Patient Hx Last Menstrual Period: iud Onset of Pain: Days - 2 Onset/Duration: Still Present Severity Currently: Severe Pain Intensity: 8 Pain Scale Used: 0-10 Numeric Timing: Constant Location: Is Discrete @ - R lower back and R LE Character Of Pain: Sharp Aggravating Factor(s): Movement Alleviating Factor(s): Nothing Able to Bear Weight: No - Allergies/Home Medications Allergies/Adverse Reactions: Allergies Allergy/AdvReac Type Severity Reaction Status Date / Time bee venom protein (honey bee) Allergy Swelling Verified 09/20/17 08:34 fluoxetine [From Prozac] Allergy Agitation Verified 09/20/17 08:34 gabapentin Allergy Unknown Verified 09/20/17 08:34 Reaction Details Penicillins Allergy GI Upset Verified 09/20/17 08:34 sertraline [From Zoloft] Allergy Hives Verified 09/20/17 08:34 ziprasidone [From Geodon] Allergy See Comment Verified 09/20/17 08:34 Home Medications: Home Medications Cyclobenzaprine (NF) [Cyclobenzaprine 5 MG (NF)] 5 mg PO TID PRN 09/20/17 [ History Confirmed 09/20/17] Dexamethasone TAB* [Decadron TAB*] 1 mg PO DAILY 09/20/17 [History Confirmed 09/04] PMH/Surg Hx/FS Hx/Imm Hx Endocrine/Hematology History: Denies: Hx Anticoagulant Therapy Respiratory History: Reports: Hx Asthma - Smoking induced asthma, Hx Seasonal Allergies Denies: Hx Chronic Bronchitis, Hx Chronic Obstructive Pulmonary Disease (COPD ), Hx Cystic Fibrosis, Hx Lung Cancer, Hx Pleural Effusion, Hx Pneumonia, Hx Pulmonary Edema, Hx Pulmonary Embolism, Hx Sleep Apnea, Other Respiratory Problems/Disorders Sensory History: Denies: Hx Cataracts, Hx Contacts or Glasses, Hx Eye Injury, Hx Eye Prosthesis, Hx Glaucoma, Hx Legally Blind, Hx Macular Degeneration, Hx Vision Problem, Other Sensory Impairments Opthamlomology History: Denies: Hx Cataracts, Hx Contacts or Glasses, Hx Eye Injury, Hx Eye Prosthesis, Hx Glaucoma, Hx Legally Blind, Hx Macular Degeneration, Hx Vision Problem, Other Sensory Impairments Neurological History: Reports: Hx Headaches - MIGRAINES Denies: Hx Dementia, Hx Developmental Delay, Hx Migraine, Hx Nerve Disease, Hx Seizures, Hx Spinal Cord Injury, Hx Transient Ischemic Attacks (TIA), Other Neuro Impairments/Disorders Psychiatric History: Reports: Hx Anxiety, Hx Eating Disorder - sometimes she binge eats., Hx Depression, Hx Post Traumatic Stress Disorder, Hx Inpatient Treatment, Hx Community Mental Health Tx, Hx Bipolar Disorder, Hx Suicide Attempt, Hx of Violent Episodes Against Others Denies: Hx Attention Deficit Hyperactivity Disorder, Hx Panic Disorder, Hx Schizophrenia, Hx Substance Abuse, Other Psychiatric Issues/Disorders - Surgical History Surgery Procedure, Year, and Place: Cleft Palate repair as - Immunization History Date of Tetanus Vaccine: UTD Date of Influenza Vaccine: NO Infectious Disease History: No Infectious Disease History: Denies: Hx Clostridium Difficile, Hx Hepatitis, Hx Human Immunodeficiency Virus (HIV), Hx of Known/Suspected MRSA, Hx Shingles, Hx Tuberculosis, Hx Known/ Suspected VRE, Hx Known/Suspected VRSA, History Other Infectious Disease, Traveled Outside the in Last 30 Days - Family History Known Family History: Positive: Diabetes Family History: R & n/C - Social History Occupation: Employed Part-time Lives: Alone Alcohol Use: None Hx Substance Use: Yes Substance Use Type: Reports: Marijuana Substance Use Comment - Amount & Last Used: daily Hx Tobacco Use: Yes Smoking Status (MU): Heavy Every Day Tobacco Smoker Type: Cigarettes Amount Used/How Often: 1/2PPD Have You Smoked in the Last Year: No Review of Systems Negative: Fever Positive: Other - L lower back pain, R LE pain Negative: Slurred Speech All Other Systems Reviewed And Are Negative: Yes Physical Exam - Summary Physical Exam Summary: Appearance: The patient is well-nourished in no acute distress and in no acute pain. Skin: The skin is warm and dry and skin color reflects adequate perfusion. HEENT: The head is normocephalic and atraumatic. The pupils are equal and reactive. The conjunctivae are clear and without drainage. Nares are patent and without drainage. Mouth reveals moist mucous membranes and the throat is without erythema and exudate. The external ears are intact. The ear canals are patent and without drainage. The tympanic membranes are intact. Neck: the neck is supple with full range of motion and non-tender. There are no carotid bruits. There is no neck vein distension. Respiratory: Chest is non-tender. Lungs are clear to auscultation and breath sounds are symmetrical and equal. Cardiovascular: Heart is regular rate and rhythm. There is no murmur or rub auscultated. There is no peripheral edema and pulses are symmetrical and equal. Abdomen: The abdomen is soft and non-tender. There are normal bowel sounds heard in all four quadrants and there is no organomegaly palpated. Musculoskeletal: There is no back tenderness noted. Extremities are non-tender with full range of motion. There is good capillary refill. There is no peripheral edema or calf tenderness elicited. Neurological: Patient is alert and oriented to person, place and time. The patient has symmetrical motor strength in all four extremities. Cranial nerves are grossly intact. Deep tendon reflexes are symmetrical and equal in all four extremities. Psychiatric: The patient has an appropriate affect and does not exhibit any anxiety or depression. Triage Information Reviewed: Yes Vital Signs On Initial Exam: Initial Vitals Temp Pulse Resp BP Pulse Ox 98.1 F 67 22 141/68 98 09/20/17 08:27 09/20/17 08:27 09/20/17 08:27 09/20/17 08:27 09/20/17 08:27 Vital Signs Reviewed: Yes Diagnostics - Vital Signs Vital Signs Temp Pulse Resp BP Pulse Ox 09/20/17 09:01 54 116/65 97 09/20/17 09:00 48 96 09/20/17 08:31 72 99 09/20/17 08:29 70 99 09/20/17 08:27 98.1 F 67 22 141/68 98 - Laboratory Lab Statement: Any lab studies that have been ordered have been reviewed, and results considered in the medical decision making process. Re-Evaluation - Re-Evaluation First Eval Re-Evaluation Time: 11:24 Change: Improved - Pt feels slightly improved. ED physician discussed plan of discharge with the pt and the pt agrees and understands. Lower Extremity Course/Dx - Course Course Of Treatment: Ms. Forrest felt her back pull a few days ago and each day since it has been worse. She has no neuro signs or symptoms and improved with ativan as muscle relaxer and ketorolac. I will treat her symptomatically. - Diagnoses Provider Diagnoses: Sciatica Discharge - Sign-Out/Discharge Documenting (check all that apply): Discharge/Admit/Transfer - discharge - Discharge Plan Condition: Stable Disposition: HOME Prescriptions: LORazepam TAB(*) [Ativan TAB(*)] 1 mg PO Q6H PRN #20 tab MDD 4 PRN Reason: Pain Patient Education Materials: Sciatica (ED) Forms: *Work Release Referrals: Migel Suarez MD [Primary Care Provider] - 2 Days Additional Instructions: Return to the ED for new or worsening symptoms. - Billing Disposition and Condition Condition: STABLE Disposition: HOME The documentation as recorded by the Sergio christianson Stephanie accurately reflects the service I personally performed and the decisions made by me, Truman Gill MD.
== END 2017-09-20 11:45 | disposition home or self-care (01) ==
LOC: ED 08:24
DX: M54.31 Sciatica, right side (principal); F17.210 Nicotine dependence, cigarettes, uncomplicated; J68.3 Other acute and subacute respiratory conditions due to chemicals, gases, fumes and vapors
CPT/HCPCS: 96372; 99282; J1885

== ENCOUNTER 2019-06-16 09:56 | Emergency (ER) | payer SELFPAY ==
[2019-06-16 10:54] VITALS: BP 126/69
--- NOTE | 2019-06-16 12:46 | UC ---
Complaint Female HPI - HPI Summary HPI Summary: 28-year-old female presents with complaints of right flank pain and hematuria. States she developed right-sided flank pain 3 days ago. States the pain waxed and waned in intensity. Nonradiating. Pain subsided last evening. Continues to notice some blood in her urine this morning. Denies fever, chills, abdominal pain, nausea, vomiting, dysuria, frequency, urgency, or vaginal discharge. - History Of Current Complaint Chief Complaint: UCGU Stated Complaint: URINARY ISSUE Time Seen by Provider: 06/16/19 11:33 Hx Obtained From: Patient Hx Last Menstrual Period: iud Pain Intensity: 0 - Allergies/Home Medications Allergies/Adverse Reactions: Allergies Allergy/AdvReac Type Severity Reaction Status Date / Time bee venom protein (honey bee) Allergy Swelling Verified 06/16/19 10:55 fluoxetine [From Prozac] Allergy Agitation Verified 06/16/19 10:55 gabapentin Allergy Unknown Verified 06/16/19 10:55 Reaction Details Penicillins Allergy GI Upset Verified 06/16/19 10:55 sertraline [From Zoloft] Allergy Hives Verified 06/16/19 10:55 ziprasidone [From Geodon] Allergy See Comment Verified 06/16/19 10:55 PMH/Surg Hx/FS Hx/Imm Hx Psychological History: Depression, Schizophrenia Other History Of: Negative For: Anticoagulant Therapy - Surgical History Surgical History: Yes Surgery Procedure, Year, and Place: Cleft Palate repair as infant - Family History Known Family History: Positive: Diabetes - Social History Occupation: Employed Full-time Lives: Alone Alcohol Use: None Substance Use Type: Marijuana Substance Use Comment - Amount & Last Used: daily Smoking Status (MU): Heavy Every Day Tobacco Smoker Type: Cigarettes Amount Used/How Often: 1/2PPD Have You Smoked in the Last Year: No Household Exposure Type: Cigarettes - Immunization History Most Recent Influenza Vaccination: 2 years ago Most Recent Tetanus Shot: 1-2 years Most Recent Pneumonia Vaccination: Never Review of Systems All Other Systems Reviewed And Are Negative: Yes Constitutional: Negative: Fever, Chills Skin: Negative: Rash Respiratory: Positive: Negative Cardiovascular: Positive: Negative Gastrointestinal: Negative: Abdominal Pain, Vomiting, Nausea Genitourinary: Positive: Hematuria. Negative: Dysuria, Frequency, Urgency, Vaginal/Penile Discharge Musculoskeletal: Positive: Negative Neurological: Positive: Negative Is Patient Immunocompromised?: No Physical Exam - Summary Physical Exam Summary: GENERAL APPEARANCE: Well developed, well nourished, alert and cooperative, and appears to be in no acute distress. CARDIAC: Normal S1 and S2. No S3, S4 or murmurs. Rhythm is regular. There is no peripheral edema, cyanosis or pallor. Extremities are warm and well perfused. Capillary refill is less than 2 seconds. Peripheral pulses intact. LUNGS: Clear to auscultation without rales, rhonchi, wheezing or diminished breath sounds. ABDOMEN: Positive bowel sounds. Soft, nondistended, nontender. No guarding or rebound. No masses or hepatosplenomegally. No CVA tenderness. MUSKULOSKELETAL: ROM intact to all extremities. No joint erythema or tenderness. Normal muscular development. Normal gait. BACK: No spinal deformity or tenderness, decreased range of motion or muscular spasm. SKIN: Skin normal color, texture and turgor with no lesions or eruptions. Triage Information Reviewed: Yes Vital Signs: Initial Vital Signs Temp 98.1 F 06/16/19 10:46 Pulse 75 06/16/19 10:46 Resp 18 06/16/19 10:46 BP 126/69 06/16/19 10:46 Pulse Ox 100 06/16/19 10:46 Vital Signs Reviewed: Yes Complaint Female Dx - Course Course Of Treatment: 28-year-old female presents with complaints of right flank pain and hematuria. States she developed right-sided flank pain 3 days ago. States the pain waxed and waned in intensity. Nonradiating. Pain subsided last evening. Continues to notice some blood in her urine this morning. Denies fever, chills, abdominal pain, nausea, vomiting, dysuria, frequency, urgency, or vaginal discharge. Afebrile. Vital signs stable. Patient's exam is overall unremarkable. The [id number] urinalysis showed trace leukocyte esterase and 1+ blood. Results reviewed with the patient and we discussed that these findings could be suggestive of a urinary tract infection however with the flank pain could not completely rule out the possibility of a kidney stone at this time. Since the patient's pain has resolved we had him elected to defer imaging at this time. A urine culture was sent and is pending. We will treat empirically for a possible urinary tract infection with Bactrim DS 1 tablet twice daily 7 days. I also provided her with a prescription for ibuprofen 600 mg every 8 hours as needed for pain. She is to follow-up with the [facility] in 7 days if symptoms are not improving. Anticipatory guidance and warning symptoms require immediate evaluation in the emergency room were reviewed with the patient. Verbalizes understanding and agrees with plan of care. - Differential Dx/Diagnosis Differential Diagnosis/HQI/PQRI: Renal Colic, Urinary Tract Infection Provider Diagnosis: Acute flank pain, Hematuria Discharge ED - Sign-Out/Discharge Documenting (check all that apply): Patient Departure All imaging exams completed and their final reports reviewed: No Studies - Discharge Plan Condition: Stable Disposition: HOME Prescriptions: Ibuprofen TAB* [Motrin TAB* 600 MG] 600 mg PO Q8H PRN #30 tab PRN Reason: Pain - Moderate Sulfamethox/Trimethoprim DS* [Bactrim DS 800/160 TAB*] 1 tab PO BID #14 tab Patient Education Materials: Flank Pain (ED) Referrals: No Primary Care Phys,NOPCP [Primary Care Provider] - [facility] [Outside] - 3 Days (Follow up in 3-5 days if no improvement in symptoms. Call for appointment.) Additional Instructions: Your urine test in the clinic today showed some blood and trace white blood cells which is suggestive of a possible urinary tract infection however with the flank pain I cannot exclude the possibility of a kidney stone. Since the pain has subsided we have decided to not obtain a CT scan at this time. We will start you on an antibiotic to treat for a possible infection. We will also send a urine culture today to see what bacteria grow out and make sure the antibiotic you were prescribed is appropriate to treat the infection. It will take 48-72 hours to get these results. We will contact you if there is any change in your treatment plan. Start Bactrim DS 1 tab twice a day for 7 days. Be sure to complete the entire course even if feeling better. Take ibuprofen 600 mg 1 tab every 8 hours as needed for pain. Drink plenty of fluids. To help prevent urinary tract infections: 1) Be sure to wipe from front to back. 2) Urinate immediately after any sexual intercourse. 3) Avoid taking bubble baths. Follow up with the [facility] in 5-7 days if symptoms persist. call for appointment. Seek immediate medical attention in the emergency room if you develop fever greater than 100.5 F, have severe abdominal pain, persistent vomiting, or any worsening of symptoms. - Billing Disposition and Condition Condition: STABLE Disposition: Home
--- NOTE | 2019-06-18 15:12 | UC ---
- Progress Note Progress Note: PROGRESS NOTE: URINE CULTURE, PRELIMINARY: E.COLI 25-50k NO CHANGE IN TREATMENT. Cuong Ha MD Course/Dx - Diagnoses Provider Diagnoses: Acute flank pain, Hematuria Discharge ED - Sign-Out/Discharge Documenting (check all that apply): Post-Discharge Follow Up All imaging exams completed and their final reports reviewed: No Studies - Discharge Plan Condition: Stable Disposition: HOME Prescriptions: Ibuprofen TAB* [Motrin TAB* 600 MG] 600 mg PO Q8H PRN #30 tab PRN Reason: Pain - Moderate Sulfamethox/Trimethoprim DS* [Bactrim DS 800/160 TAB*] 1 tab PO BID #14 tab Patient Education Materials: Flank Pain (ED) Referrals: [facility] [Outside] - 3 Days (Follow up in 3-5 days if no improvement in symptoms. Call for appointment.) No Primary Care Phys,NOPCP [Primary Care Provider] - Additional Instructions: Your urine test in the clinic today showed some blood and trace white blood cells which is suggestive of a possible urinary tract infection however with the flank pain I cannot exclude the possibility of a kidney stone. Since the pain has subsided we have decided to not obtain a CT scan at this time. We will start you on an antibiotic to treat for a possible infection. We will also send a urine culture today to see what bacteria grow out and make sure the antibiotic you were prescribed is appropriate to treat the infection. It will take 48-72 hours to get these results. We will contact you if there is any change in your treatment plan. Start Bactrim DS 1 tab twice a day for 7 days. Be sure to complete the entire course even if feeling better. Take ibuprofen 600 mg 1 tab every 8 hours as needed for pain. Drink plenty of fluids. To help prevent urinary tract infections: 1) Be sure to wipe from front to back. 2) Urinate immediately after any sexual intercourse. 3) Avoid taking bubble baths. Follow up with the [facility] in 5-7 days if symptoms persist. call for appointment. Seek immediate medical attention in the emergency room if you develop fever greater than 100.5 F, have severe abdominal pain, persistent vomiting, or any worsening of symptoms. - Billing Disposition and Condition Condition: STABLE Disposition: Home
== END 2019-06-16 13:07 | disposition home or self-care (01) ==
LOC: UCEAST 09:56
DX: R31.9 Hematuria, unspecified (principal); R10.9 Unspecified abdominal pain; F17.210 Nicotine dependence, cigarettes, uncomplicated; R11.2 Nausea with vomiting, unspecified; Z91.030 Bee allergy status; Z88.0 Allergy status to penicillin; Z88.8 Allergy status to other drugs, medicaments and biological substances
CPT/HCPCS: 81003; 87077; 87086; 87186; 99212; G0463